=== PATIENT | male | born 1965 | race African-American/Black ===

== ENCOUNTER 2019-09-14 05:24 | Observation (INO) | payer SELFPAY ==
[2019-09-14] MEDS ORDERED: Aspirin 81 MG Tab.Chew PO ONE (05:36)
[2019-09-14] MEDS ORDERED: Nitroglycerin 2% Oint 1 GM UD Packet TOP ONE (05:37)
[2019-09-14] MEDS ORDERED: Morphine 4 MG/ML Syringe IVPUSH ONE (05:38)
--- NOTE | 2019-09-14 05:43 | EDM.PDOC ---
ED HPI GENERAL MEDICAL PROBLEM - General Chief Complaint: Chest Pain Stated Complaint: CHEST PAIN Time Seen by Provider: 09/14/19 05:30 Source of Information: Reports: Patient - History of Present Illness INITIAL COMMENTS - FREE TEXT/NARRATIVE: The patient is a 54-year-old male with coronary artery disease and one cardiac stent placed approximately 11 years ago who presents to the ER for chest pain. He states that this feels exactly like his heart attack previously was as a sharp stabbing pain that goes through to his back in the retrosternal region. He states that this started about 45 minutes prior to arrival and he feels slightly short of breath with it. He took up to 5 nitroglycerin tablets without any relief so he decided to come to the ER. No fevers or chills, no coughing, no hemoptysis, no abdominal pain, no syncope or near syncope or any other acute complaints. chest area Pain Score (Numeric/FACES): 5 - Related Data Allergies Allergy/AdvReac Type Severity Reaction Status Date / Time No Known Allergies Allergy Verified 09/14/19 05:35 Home Meds: Home Meds Clopidogrel [Plavix] 75 mg PO DAILY 09/14/19 [History] Lisinopril [Zestril] 10 mg PO DAILY 09/14/19 [History] Metoprolol Succinate [Toprol Xl] 25 mg PO DAILY 09/14/19 [History] Rosuvastatin [Crestor] 10 mg PO DAILY 09/14/19 [History] ED ROS GENERAL - Review of Systems Review Of Systems: See Below (Positive for chest pain, positive shortness of breath, negative for fevers, negative chills, negative for cough, negative for abdominal pain, all other Positives and pertinent negatives as per HPI. All other pertinent systems were reviewed and are negative) ED EXAM, GENERAL - Physical Exam Exam: See Below Free Text/Narrative:: Constitutional: Nontoxic, obese, looks uncomfortable HEENT.: Normocephalic, Atraumatic, PERRL, EOMI, External ears are atraumatic, nares are patent without epistaxis Neck: Normal range of motion, Trachea Midline, No stridor Respiratory.: No respiratory distress, No tachypnea, Lungs Clear to Auscultation bilaterally without wheezes, rales, or rhonchi Cardiovascular.: Regular rate and Rhythm without murmurs, rubs, or gallops, good peripheral perfusion GI: Abdomen soft and non tender Genital Urinary: Deferred Musculoskeletal: Good range of motion. All 4 extremities present and atraumatic , no edema Back: Full Range of Motion Skin: Warm, Dry, Color is ethnicity appropriate, No acute rash. Lymphatic: No lymphadenopathy noted Neurological: Alert, Awake and oriented x 3, No focal deficits noted appreciate , GCS 15 Psych: Affect, Judgement, mood normal Course - Vital Signs Text/Narrative:: Differential diagnosis includes myocarditis, endocarditis, pericardial effusion , pericarditis, acute coronary syndrome, pulmonary embolism, pulmonary infarction, pneumothorax, pneumonia, others Although sharp and stabbing is more unusual the patient does state that this feels exactly like his previous myocardial infarction and given that he is not a low risk patient a cardiac work-up was initiated. The patient was given aspirin, nitroglycerin transdermal, as well as morphine 4 mg IV. The initial ECG was read and interpreted by me and there are P waves before every regular QRS with a ventricular rate of 100 bpm. [place], QRS and QT intervals are unremarkable. There is poor R wave progression with significant Q waves in the anterior leads, ST segments are baseline and T wave morphology is flattened. Final interpretation is a normal sinus rhythm with old anterior Q waves and nonspecific T wave flattening. There is been a delay in the lab work secondary to hemolysis of the labs have been redrawn. The patient is complaining of "gas pain" and wanted to take his own Tums. A repeat ECG was performed and was read and interpreted by me. There are P waves before every regular QRS with a ventricular rate of 74 bpm. [place], QRS and QT intervals are unremarkable. There remain old Q waves in the anterior leads and ST segments remain baseline with nonspecific T wave flattening. Final interpretation is a normal sinus rhythm with on changed baseline ST segments and nonspecific T wave changes. Chest x-ray is reviewed and interpreted by me -are no pulmonary filtrates, pleural effusions, pneumothorax, thoracic masses or any acute pathology. For set of labs including troponin are negative. The patient is currently not having any chest pain but he states that he is having the sensation that he has to pass gas. Vital signs remain unremarkable, he is not diaphoretic, he is not complaining of severe abdominal pain, etc. and at this time I do not feel that the patient needs a work-up for an aortic dissection, pulmonary embolism, or other malignant cardiopulmonary processes. Given the patient's heart score, he is at least moderate risk and he will need to be admitted to the hospital for continued observation, reevaluation and final disposition as appropriate. Critical care time less than 30 minutes. Last Recorded V/S: Last Vital Signs Temp 36.4 C 09/14/19 05:25 Pulse 78 09/14/19 06:10 Resp 18 09/14/19 06:10 BP 129/73 09/14/19 06:10 Pulse Ox 97 09/14/19 06:10 - Orders/Labs/Meds Orders: Active Orders 24 hr Category Date Time Status EKG Documentation Completion [RC] STAT Care 09/14/19 06:35 Active CXR [Chest 1V Frontal] [CR] Stat Exams 09/14/19 05:36 Taken Labs: Laboratory Tests 09/14/19 09/14/19 Range/Units 05:25 06:14 WBC 10.19 (4.0-11.0) K/uL RBC 4.79 (4.50-5.90) M/uL Hgb 15.1 (13.0-17.0) g/dL Hct 45.2 (38.0-50.0) % MCV 94.4 (80.0-98.0) fL MCH 31.5 (27.0-32.0) pg MCHC 33.4 (31.0-37.0) g/dL RDW Std Deviation 50.8 (28.0-62.0) fl RDW Coeff of Darya 15 (11.0-15.0) % Plt Count 273 (150-400) K/uL MPV 11.40 (7.40-12.00) fL Neut % (Auto) 38.4 L (48.0-80.0) % Lymph % (Auto) 49.7 H (16.0-40.0) % [place] % (Auto) 8.3 (0.0-15.0) % Eos % (Auto) 3.0 (0.0-7.0) % Baso % (Auto) 0.6 (0.0-1.5) % Neut # (Auto) 3.9 (1.4-5.7) K/uL Lymph # (Auto) 5.1 H (0.6-2.4) K/uL [place] # (Auto) 0.9 H (0.0-0.8) K/uL Eos # (Auto) 0.3 (0.0-0.7) K/uL Baso # (Auto) 0.1 (0.0-0.1) K/uL Nucleated RBC % 0.0 /100WBC Nucleated RBCs # 0 K/uL Sodium 138 (136-148) mmol/L Potassium 4.3 (3.5-5.1) mmol/L Chloride 105 (98-107) mmol/L Carbon Dioxide 24.9 (21.0-32.0) mmol/L BUN 18 (7.0-18.0) mg/dL Creatinine 1.1 (0.8-1.3) mg/dL Est Cr Clr Drug Dosing 85.75 mL/min Estimated GFR (MDRD) > 60.0 ml/min Glucose 115 H (74-106) mg/dL Calcium 8.8 (8.5-10.1) mg/dL Total Bilirubin 0.4 (0.2-1.0) mg/dL AST 20 (15-37) IU/L ALT 39 (14-63) IU/L Alkaline Phosphatase 122 H (46-116) U/L Troponin I < 0.050 (0.000-0.056) ng/mL Total Protein 7.2 (6.4-8.2) g/dL Albumin 3.4 (3.4-5.0) g/dL Globulin 3.8 (2.6-4.0) g/dL Albumin/Globulin Ratio 0.9 (0.9-1.6) Meds: Medications Discontinued Medications Generic Name Dose Route Start Last Admin Trade Name Freq PRN Reason Stop Dose Admin Aspirin 324 mg 09/14/19 05:36 09/14/19 05:48 Aspirin PO 09/14/19 05:37 324 mg ONETIME ONE Administration Morphine Sulfate 4 mg 09/14/19 05:38 09/14/19 05:48 Morphine IVPUSH 09/14/19 05:39 4 mg ONETIME ONE Administration Nitroglycerin 1 gm 09/14/19 05:37 09/14/19 05:50 Nitro-Bid 2% TOP 09/14/19 05:38 1 gm ONETIME ONE Administration Departure - Departure Time of Disposition: 06:55 Disposition: Refer to Observation Condition: Fair Clinical Impression: Chest pain Forms: ED Department Discharge Sepsis Event Note - Evaluation Sepsis Screening Result: No Definite Risk - Focused Exam Vital Signs: Vital Signs Temp Pulse Resp BP Pulse Ox 09/14/19 06:10 78 18 129/73 97 09/14/19 05:25 36.4 C 88 18 119/74 98 Date Exam was Performed: 09/14/19 Time Exam was Performed: 06:49 - My Orders Last 24 Hours: My Active Orders 09/14/19 05:36 CXR [Chest 1V Frontal] [CR] Stat 09/14/19 06:35 EKG Documentation Completion [RC] STAT - Assessment/Plan Last 24 Hours: My Active Orders 09/14/19 05:36 CXR [Chest 1V Frontal] [CR] Stat 09/14/19 06:35 EKG Documentation Completion [RC] STAT
[2019-09-14 06:41] LABS: BLOOD UREA NITROGEN,BUN 18 mg/dL (7.0-18.0); CARBON DIOXIDE,CO2 24.9 mmol/L (21.0-32.0); CHLORIDE,CL 105 mmol/L (98-107); GLUCOSE RANDOM 115 mg/dL (74-106); POTASSIUM,K 4.3 mmol/L (3.5-5.1); SODIUM,NA 138 mmol/L (136-148)
[2019-09-14] MEDS ORDERED: Acetaminophen 325 MG Tab PO PRN (07:38)
[2019-09-14] MEDS ORDERED: Calcium Carbonate 500 MG Tab.Chew PO PRN (07:39)
[2019-09-14] MEDS ORDERED: Ondansetron 4 MG/2 ML SDV IVPUSH PRN (07:56)
--- NOTE | 2019-09-14 07:57 | CR ---
INDICATION: Chest pain. TECHNIQUE: AP portable chest. FINDINGS: Shallow inspiration. Clear lungs. Overall heart size is at the upper limit of normal. Mild degenerative change of the AC joints. IMPRESSION: No acute cardiopulmonary process identified. Dictated by Daniel Santana MD @ Sep 14 2019 7:54AM Signed by Dr. Daniel Santana @ Sep 14 2019 7:55AM
--- NOTE | 2019-09-14 07:57 | PCM.HP.2 ---
H&P History of Present Illness - General Date of Service: 09/14/19 Admit Problem/Dx: Admission Diagnosis/Problem Admission Diagnosis/Problem Chest pain Source of Information: Patient, Old Records History Limitations: Reports: No Limitations - History of Present Illness Initial Comments - Free Text/Narative: This 54 year old male with pmh of HTN, CAD with PCI in 2018 with stent to LAD, tobacco abuse, and obesity presented to the ED with chest pain that started around 0400 am this morning. He reports his friend called him and after his talk he started hving anterior chest pain that radiates to his back. He reports mild shortness of breath no diaphoresis. He denies dizziness or lightheadedness. He reports the pain as constant and sharp. He took nitro x 5 at home with no relief. He reports if he pushes on his back the pain is relieved. He reports some mild epigastric pain as well and some gas pains in his abdomen. He denies diarrhea or vomiting. No black or bloody stools. No coffee ground emesis. pain with eating. No urinary concerns. No URI symptoms or dyspnea. No focal neurological deficits. He reports he continues to smoke, has attempted to quit but has been unable to with patched or Chantix. No alcohol use or recreational drug use. In the ED CBC and CMP WNL. Troponin negative. EKG SR with no acute ST changes. CXR negative. TSH WNL, Lipid panel stable, LDL 80 and HDL 39 and A1c elevated at 6.3. He was given Nitro paste and ASA in ED. He will be admitted for observation, chest pain R/o ACS. Reviewed records, recently followed up with Cardiology in [place] August 30 2019. All medications continued. chest area Pain Score (Numeric/FACES): 5 - Related Data Allergies/Adverse Reactions: Allergies Allergy/AdvReac Type Severity Reaction Status Date / Time No Known Allergies Allergy Verified 09/14/19 07:52 Home Medications: Home Meds Clopidogrel [Plavix] 75 mg PO DAILY 09/14/19 [History] Lisinopril [Zestril] 10 mg PO DAILY 09/14/19 [History] Metoprolol Succinate [Toprol Xl] 25 mg PO DAILY 09/14/19 [History] Rosuvastatin [Crestor] 10 mg PO DAILY 09/14/19 [History] Past Medical History HEENT History: Reports: None Cardiovascular History: Reports: High Cholesterol, Hypertension, RI (large anterior wall RI 2018), Stents (x1 to LAD). Denies: Afib, Blood Clots/VTE/DVT Respiratory History: Reports: None. Denies: Asthma, COPD Gastrointestinal History: Reports: None. Denies: GERD Genitourinary History: Reports: None. Denies: Chronic Renal Insuffiency Musculoskeletal History: Reports: None Neurological History: Reports: None. Denies: CVA, TIA Psychiatric History: Reports: None Endocrine/Metabolic History: Reports: Obesity/BMI 30+. Denies: Diabetes, Type II Insulin Pump Model and Camp Boss: None Hematologic History: Reports: None Immunologic History: Reports: None Oncologic (Cancer) History: Reports: None Dermatologic History: Reports: None - Infectious Disease History Infectious Disease History: Reports: None - Past Surgical History Head Surgeries/Procedures: Reports: None Cardiovascular Surgical History: Reports: Coronary Artery Stent Male Surgical History: Reports: None Musculoskeletal Surgical History: Reports: None Social & Family History - Tobacco Use Smoking Status *Q: Current Every Day Smoker Years of Tobacco use: 40 Packs/Tins Daily: 0.5 - Caffeine Use Caffeine Use: Reports: Coffee, Soda - Alcohol Use Alcohol Use History: No - Recreational Drug Use Recreational Drug Use: No - Living Situation & Occupation Living situation: Reports: (goes between [place] and [place] where family is) Occupation: Employed (logging truck driver) H&P Review of Systems - Review of Systems: Review Of Systems: See Below General: Reports: No Symptoms. Denies: Fever, Chills, Malaise, Weakness HEENT: Reports: No Symptoms. Denies: Headaches, Sinus Congestion, Sore Throat Pulmonary: Reports: No Symptoms. Denies: Shortness of Breath, Cough, Sputum Cardiovascular: Reports: Chest Pain. Denies: Dyspnea on Exertion, Edema, Lightheadedness, Syncope Gastrointestinal: Reports: Abdominal Pain (epigastric pain), Distension. Denies : Black Stool, Bloody Stool, Nausea, Vomiting Genitourinary: Reports: No Symptoms. Denies: Dysuria, Frequency, Burning Musculoskeletal: Reports: No Symptoms Skin: Reports: No Symptoms Psychiatric: Reports: No Symptoms Neurological: Reports: No Symptoms Hematologic/Lymphatic: Reports: No Symptoms Exam - Exam Exam: See Below - Vital Signs Vital Signs: Last Vital Signs Temp 97 F 09/14/19 07:31 Pulse 72 09/14/19 07:31 Resp 14 09/14/19 07:31 BP 118/73 09/14/19 07:31 Pulse Ox 96 09/14/19 07:31 Weight: 136.078 kg - Exam Quality Assessment: DVT Prophylaxis. No: Supplemental Oxygen General: Alert, Oriented, Cooperative HEENT: Conjunctiva Clear, Mucosa Moist & [place], Posterior Pharynx Clear Lungs: Clear to Auscultation, Normal Respiratory Effort Cardiovascular: Regular Rate, Regular Rhythm, Normal S1, Normal S2. No: Systolic Murmur GI/Abdominal Exam: Normal Bowel Sounds, Soft, Tender (mild pain on palpation to epigastric region) Back Exam: Normal Inspection, Full Range of Motion Extremities: Normal Inspection, Normal Range of Motion, Non-Tender, No Pedal Edema Neuro Extensive - Mental Status: Alert, Oriented x3 Neuro Extensive - Motor, Sensory, Reflexes: CN II-XII Intact Psychiatric: Alert, Normal Affect, Normal Mood - Patient Data Lab Results Last 24 hrs: Laboratory Results - last 24 hr 09/14/19 09/14/19 Range/Units 05:25 06:14 WBC 10.19 (4.0-11.0) K/uL RBC 4.79 (4.50-5.90) M/uL Hgb 15.1 (13.0-17.0) g/dL Hct 45.2 (38.0-50.0) % MCV 94.4 (80.0-98.0) fL MCH 31.5 (27.0-32.0) pg MCHC 33.4 (31.0-37.0) g/dL RDW Std Deviation 50.8 (28.0-62.0) fl RDW Coeff of Darya 15 (11.0-15.0) % Plt Count 273 (150-400) K/uL MPV 11.40 (7.40-12.00) fL Neut % (Auto) 38.4 L (48.0-80.0) % Lymph % (Auto) 49.7 H (16.0-40.0) % [place] % (Auto) 8.3 (0.0-15.0) % Eos % (Auto) 3.0 (0.0-7.0) % Baso % (Auto) 0.6 (0.0-1.5) % Neut # (Auto) 3.9 (1.4-5.7) K/uL Lymph # (Auto) 5.1 H (0.6-2.4) K/uL [place] # (Auto) 0.9 H (0.0-0.8) K/uL Eos # (Auto) 0.3 (0.0-0.7) K/uL Baso # (Auto) 0.1 (0.0-0.1) K/uL Nucleated RBC % 0.0 /100WBC Nucleated RBCs # 0 K/uL Sodium 138 (136-148) mmol/L Potassium 4.3 (3.5-5.1) mmol/L Chloride 105 (98-107) mmol/L Carbon Dioxide 24.9 (21.0-32.0) mmol/L BUN 18 (7.0-18.0) mg/dL Creatinine 1.1 (0.8-1.3) mg/dL Est Cr Clr Drug Dosing 85.75 mL/min Estimated GFR (MDRD) > 60.0 ml/min Glucose 115 H (74-106) mg/dL Calcium 8.8 (8.5-10.1) mg/dL Total Bilirubin 0.4 (0.2-1.0) mg/dL AST 20 (15-37) IU/L ALT 39 (14-63) IU/L Alkaline Phosphatase 122 H (46-116) U/L Troponin I < 0.050 (0.000-0.056) ng/mL Total Protein 7.2 (6.4-8.2) g/dL Albumin 3.4 (3.4-5.0) g/dL Globulin 3.8 (2.6-4.0) g/dL Albumin/Globulin Ratio 0.9 (0.9-1.6) Result Diagrams: 09/14/19 05:25 09/14/19 06:14 Sepsis Event Note - Evaluation Sepsis Screening Result: No Definite Risk - Focused Exam Vital Signs: Vital Signs Temp Pulse Resp BP Pulse Ox 09/14/19 07:31 97 F 72 14 118/73 96 09/14/19 06:55 74 18 111/67 95 09/14/19 06:10 78 18 129/73 97 09/14/19 05:25 97.5 F 88 18 119/74 98 Date Exam was Performed: 09/14/19 Time Exam was Performed: 10:54 - Problem List (1) Chest pain SNOMED Code(s): 95844566 ICD Code: R07.9 - CHEST PAIN, UNSPECIFIED Status: Acute Current Visit: Yes (2) Hx of acute myocardial infarction of anterior wall SNOMED Code(s): 298266911 ICD Code: I25.2 - OLD MYOCARDIAL INFARCTION Status: Chronic Current Visit : Yes (3) HTN (hypertension) SNOMED Code(s): 59731738 ICD Code: I10 - ESSENTIAL (PRIMARY) HYPERTENSION Status: Chronic Current Visit: Yes (4) CAD (coronary artery disease) SNOMED Code(s): 38123340 ICD Code: I25.10 - ATHSCL HEART DISEASE OF [place] CORONARY ARTERY W/O ANG PCTRS Status: Chronic Current Visit: Yes Qualifiers: Coronary Disease-Associated Artery/Lesion type: [place] artery [place] vs. transplanted heart: [place] heart Associated angina: without angina Qualified Code(s): I25.10 - Atherosclerotic heart disease of [place] coronary artery without angina pectoris (5) HLD (hyperlipidemia) SNOMED Code(s): 22523546 ICD Code: E78.5 - HYPERLIPIDEMIA, UNSPECIFIED Status: Chronic Current Visit: Yes (6) Obesity SNOMED Code(s): 759827637, 310363187 ICD Code: E66.9 - OBESITY, UNSPECIFIED Status: Chronic Current Visit: Yes (7) Tobacco abuse SNOMED Code(s): 710416824 ICD Code: Z72.0 - TOBACCO USE Status: Chronic Current Visit: Yes (8) Hx of heart artery stent SNOMED Code(s): 102690312, 662229370 ICD Code: Z95.5 - PRESENCE OF CORONARY ANGIOPLASTY IMPLANT AND GRAFT Status : Chronic Current Visit: Yes Problem List Initiated/Reviewed/Updated: Yes Orders Last 24hrs: Active Orders 24 hr Category Date Time Status Admission Status [Patient Status] [ADT] Stat ADT 09/14/19 06:55 Active Ambulate [RC] ASDIRECTED Care 09/14/19 07:33 Active Antiembolic Devices [RC] PER UNIT ROUTINE Care 09/14/19 07:33 Active Communication Order [RC] ROUTINE Care 09/14/19 07:55 Ordered EKG Documentation Completion [RC] STAT Care 09/14/19 06:35 Active Intake and Output [RC] QSHIFT Care 09/14/19 07:57 Ordered Oxygen Therapy [RC] PRN Care 09/14/19 07:56 Ordered Telemetry Monitoring [Cardiac Monitoring] [RC] . Care 09/14/19 07:55 Ordered DIRECTED VTE/DVT Education [RC] PER UNIT ROUTINE Care 09/14/19 07:56 Ordered Vital Signs [RC] Q4H Care 09/14/19 07:31 Active Heart Healthy Diet [DIET] Diet 09/14/19 Breakfast Active GLYCOSYLATED HEMOGLOBIN,HGBA1C [CHEM] Routine Lab 09/14/19 07:36 Ordered LIPID PANEL [CHEM] Routine Lab 09/14/19 06:14 Received TROPONIN I [CHEM] Routine Lab 09/14/19 09:14 Ordered TROPONIN I [CHEM] Routine Lab 09/14/19 12:14 Ordered TSH [CHEM] Routine Lab 09/14/19 06:14 Received UA W/MICROSCOPIC [URIN] Routine Lab 09/14/19 07:37 Ordered Acetaminophen [Tylenol] Med 09/14/19 07:38 Active 650 mg PO Q6H PRN Calcium Carbonate [Tums] Med 09/14/19 07:39 Active 1,000 mg PO Q4HR PRN Clopidogrel [Plavix] Med 09/14/19 09:00 Ordered 75 mg PO DAILY Metoprolol Succinate [Toprol XL] Med 09/14/19 09:00 Ordered 25 mg PO DAILY Ondansetron [Zofran] Med 09/14/19 07:56 Ordered 4 mg IVPUSH Q4H PRN Rosuvastatin [Crestor] Med 09/14/19 09:00 Ordered 10 mg PO DAILY lisinopriL [Prinivil] Med 09/14/19 09:00 Ordered 10 mg PO DAILY Sequential Compression Device [OM.PC] Routine Oth 09/14/19 07:33 Ordered Resuscitation Status Routine Resus Stat 09/14/19 07:56 Ordered Medication Orders Acetaminophen (Tylenol) 650 mg PO Q6H PRN PRN Reason: pain Calcium Carbonate/Glycine (Tums) 1,000 mg PO Q4HR PRN PRN Reason: Indigestion Clopidogrel Bisulfate (Plavix) 75 mg PO DAILY RACHANA Lisinopril (Prinivil) 10 mg PO DAILY RACHANA Metoprolol Succinate (Toprol Xl) 25 mg PO DAILY RACHANA Rosuvastatin Calcium (Crestor) 10 mg PO DAILY RACHANA Assessment/Plan Comment:: This 54 year old male admitted with chest pain R/O ACS 1. Chest pain: - Trend troponins Q3hr x 2 - Monitor on Telemetry 2. CAD/HTN - Continue Home medications Discharge Plan: Repeat troponin 3 hours after arrival elevated to 0.711, no current chest pain No EKG changes. Heparin gtt started. Spoke with patient and advised on need to transfer due to NSTEMI and evaluation by interventional cardiology. He is in agreement with plan. I spoke with Dr Roberts, [facility] who has accepted patient for transfer at this time. Maeve will be transfered to [place] via [facility] ambulance this morning with heparin gtt. He has received Plavix 75 in the morning, along with ASA in ED. He also received his Metoprolol and Lisinopril. - Mortality Measure Prognosis:: Good
[2019-09-14 08:12] LABS: HEMOGLOBIN A1C 6.3 % (4.5-6.2)
[2019-09-14] MEDS ORDERED: Pantoprazole 40 MG in Sodium Chloride 0.9% 10 ML IV ONE (08:15)
[2019-09-14] MEDS ORDERED: Lisinopril 10 MG Tab PO SCH (09:00)
[2019-09-14] MEDS ORDERED: Clopidogrel 75 MG Tab PO SCH (09:00)
[2019-09-14] MEDS ORDERED: Rosuvastatin 10 MG Tab PO SCH (09:00)
[2019-09-14] MEDS ORDERED: Metoprolol Succinate 25 MG Tab.ER PO SCH (09:00)
[2019-09-14] MEDS ORDERED: Heparin Sodium 5,000 Units/ML Vial IVPUSH ONE (09:49)
[2019-09-14] MEDS ORDERED: Heparin Sod,Pork In 0.45% Nacl 25,000 UNIT/500 ML IV.SOLN IV SCH (10:00)
== END 2019-09-14 12:33 ==
LOC: MW.ED 05:24 → MW.MS 06:55
PROVIDERS: ADMIT Student in an Organized Health Care Education/Training Program; ATTEND Student in an Organized Health Care Education/Training Program
DX: R07.2 Precordial pain (principal); I25.10 Atherosclerotic heart disease of native coronary artery without angina pectoris; E66.9 Obesity, unspecified; I10 Essential (primary) hypertension; E78.00 Pure hypercholesterolemia, unspecified; F17.210 Nicotine dependence, cigarettes, uncomplicated; I25.2 Old myocardial infarction; E78.5 Hyperlipidemia, unspecified; Z68.39 Body mass index [BMI] 39.0-39.9, adult; Z79.899 Other long term (current) drug therapy; Z95.5 Presence of coronary angioplasty implant and graft; Z79.02 Long term (current) use of antithrombotics/antiplatelets
CPT/HCPCS: 36415; 71045; 71045-26; 80053; 80061; 81001; 83036; 83690; 84443; 84484; 85025; 85730; 93005; 96374; 96375; 99284; 99285-25; A9270-GY; C9113; G0378; J1644; J2270; J7050